=== PATIENT | female | born 1960 ===

== ENCOUNTER 2019-06-10 11:45 | Inpatient (IN) | payer OTHER ==
[~2019-06-10] VITALS: Ht 162.6 cm; Wt 108.0 kg
[2019-06-10] MEDS ORDERED: LIPITOR40 MG PO (13:26)
[2019-06-10] MEDS ORDERED: CHOLECALCIFEROL (13:26)
[2019-06-14] MEDS ORDERED: VITAMIN D-32000 UNIT (08:41)
[2019-06-14] MEDS ORDERED: VITAMIN D35000 UNI1 PO (08:42)
== END 2019-06-15 10:55 | disposition home or self-care (01) | DRG 741 ==
LOC: O/R 11:45 → SURH 06-14 11:45 → OB/GYN 06-14 13:10
PROVIDERS: ADMIT Obstetrics & Gynecology Gynecologic Oncology
PROC: 0UT74ZZ Resection of Bilateral Fallopian Tubes, Percutaneous Endoscopic Approach (ICD-10-PCS; 2019-06-14)
PROC: 0UT24ZZ Resection of Bilateral Ovaries, Percutaneous Endoscopic Approach (ICD-10-PCS; 2019-06-14)
PROC: 07BC4ZX Excision of Pelvis Lymphatic, Percutaneous Endoscopic Approach, Diagnostic (ICD-10-PCS; 2019-06-14)
PROC: 0UT94ZZ Resection of Uterus, Percutaneous Endoscopic Approach (ICD-10-PCS; principal; 2019-06-14 15:00)
DX: C54.1 Malignant neoplasm of endometrium (principal)